=== PATIENT | male | born 1940 | race Caucasian/White ===

== ENCOUNTER 2019-03-14 11:18 | Day surgery (SDC) | payer MEDICARE ==
[~2019-03-14 11:18] MED LIST: Acetaminophen TAB* 325 MG PO PRN; Buffered Lidocaine 1% SYRIN* 1 ML/SYRINGE INTRADERM ONE
[2019-03-14] MEDS ORDERED: fentaNYL* 50 MCG/ML 2 ML VIAL (100 MCG VIAL) ONE (12:47)
[2019-03-14] MEDS ORDERED: Midazolam* 1 MG/ML 5 ML VIAL (5 MG) ONE (12:47)
[2019-03-14 14:33] VITALS: BP 103/65
[2019-03-14] MEDS ORDERED: Neomycin/Polymy/Dex OPHTH.OIN* 3.5 GM ONE (14:49)
[2019-03-14] MEDS ORDERED: Phenylephrine OPHTH SOL 2.5%* 2 ML ONE (14:49)
[2019-03-14] MEDS ORDERED: Tetracaine 0.5% OPTH.SOL 4 ML* 1 DROP BTL ONE (14:49)
[2019-03-14] MEDS ORDERED: Tropicamide 1% OPTH.SOL* BTL ONE (14:49)
[2019-03-14] MEDS ORDERED: Cyclopentolate 1% OPTH.SOL* 2 ML BTL ONE (14:49)
[2019-03-14] MEDS ORDERED: Lidocaine 1% MPF ** 5 ML VIAL ONE (14:49)
[2019-03-14] MEDS ORDERED: Ketorolac 0.5% OPHTH (NF) 0.5 % 5 ML BTL ONE (14:50)
--- NOTE | 2019-03-14 14:50 | OP ---
DATE OF OPERATION: 03/14/19 [facility] DATE OF : 42 SURGEON: Dr. Avery Fong. SWITCHBOARD MANAGER: None. ANESTHESIA: Topical with intravenous sedation. PRE-OP DIAGNOSIS: Cataract with astigmatism, left eye. POST-OP DIAGNOSIS: Cataract with astigmatism, left eye. OPERATIVE PROCEDURE: Phacoemulsification and cataract extraction with posterior chamber toric intraocular lens implant, left eye. COMPLICATIONS: None. BLOOD LOSS: None. DESCRIPTION OF PROCEDURE: The patient was brought to the operating room and given intravenous sedation. A drop of tetracaine was placed into his left eye. The patient was prepped and draped in the usual sterile fashion for ophthalmic surgery. Attention was directed to the left eye where a speculum was placed. A paracentesis was created at the 5 o'clock position and 0.1 cc of 1% preservative-free lidocaine was injected into the anterior chamber followed by DisCoVisc. The eye was digitally stabilized while a 2.75-mm keratome was used to create a triplanar clear corneal incision at the 3 o'clock position. A continuous curvilinear capsulorrhexis was created with a cystotome and Utrata forceps. BSS on a cannula was used to hydrodissect the lens from the capsule. Phacoemulsification was performed in a kpxgei-gfm-enrrijk technique to create 4 fragments which were removed. Residual cortical material was removed with irrigation and aspiration. The capsular bag was polished. ProVisc was used to inflate the capsular bag. Intraocular pressure was taken and found to be appropriate. The surface of the eye was lubricated with BSS. The ORA device was employed. An [id number] 17.5-diopter lens was chosen. The lens was folded and inserted into the capsular bag. The lens was dialed to the appropriate axial alignment as guided by the reticle on the ORA machine. Irrigation and aspiration were performed to remove viscoelastic from the eye and the lens was stabilized with the Sinskey hook. The Sinskey hook was removed and BSS on a cannula was used to hydrate the corneal stroma. The wound was sealed. The eye pressure appeared normal. The lens implant appeared stable, centered and axially aligned. The wound appeared watertight. The speculum was then removed and topical Maxitrol ointment was placed on the surface of the eye. The eye was closed, patched, and shielded and the patient was sent to the recovery room in stable condition with postoperative instructions and followup appointment given. [id number]/[facility] #: [id number] RAÚL
== END 2019-03-14 14:22 | disposition home or self-care (01) ==
LOC: OREAST 11:18
PROVIDERS: ATTEND Ophthalmology
DX: Z01.818 Encounter for other preprocedural examination (principal); H25.13 Age-related nuclear cataract, bilateral; H25.013 Cortical age-related cataract, bilateral; H40.9 Unspecified glaucoma; H52.222 Regular astigmatism, left eye
CPT/HCPCS: A9270-GY; J2250; J3010; V2787